=== PATIENT | male | born 1970 | race Hispanic/Latino ===

== ENCOUNTER 2021-03-31 08:14 | Emergency (ER) | payer SELFPAY ==
[2021-03-31 11:31] VITALS: BP 135/111
--- NOTE | 2021-03-31 11:34 | Emergency Department Report ---
ED Extremity Problem HPI - General Chief complaint: Extremity Problem,Nontraumatic Stated complaint: POSSIBLE BLOOD CLOT IN LEFT LEG Time Seen by Provider: 03/31/21 11:16 Source: patient Mode of arrival: Ambulatory Limitations: No Limitations - History of Present Illness Initial comments: Patient is a 50-year-old male who presents emergency room with complaints of an extremity issue to the left leg that began a week ago. He states initially it began as a rash to the left anterior bailon. He states this started a week ago and then 2 days later he began having swelling and pain to the leg. He denies ever having this in the past. He denies any fever, nausea, vomiting, diarrhea, numbness, weakness. He is ambulatory. he denies any fall or injury. He has a past medical history of hypertension but has not taken his medication in several years. He states he previously used to be on lisinopril. No allergies to medications. - Related Data Previous Rx's Medication Instructions Recorded Last Taken Type Naproxen [EC-Naprosyn] 500 mg PO BID PRN #20 tablet. 03/31/21 Unknown Rx hydroCHLOROthiazide [HCTZ] 25 mg PO QDAY #30 tablet 03/31/21 Unknown Rx traMADoL [Ultram 50 MG tab] 50 mg PO Q6HR PRN #12 tablet 03/31/21 Unknown Rx Allergies Allergy/AdvReac Type Severity Reaction Status Date / Time No Known Allergies Allergy Unverified 03/31/21 08:46 ED Review of Systems ROS: Stated complaint: POSSIBLE BLOOD CLOT IN LEFT LEG Other details as noted in HPI Comment: All other systems reviewed and negative ED Past Medical Hx - Past Medical History Hx Hypertension: Yes Hx Diabetes: Yes (Pre diabetes) - Surgical History Past Surgical History?: Yes Additional Surgical History: Mult ortho - Medications Home Medications: Home Medications Medication Instructions Recorded Confirmed Last Taken Type Naproxen [EC-Naprosyn] 500 mg PO BID PRN #20 tablet. 03/31/21 Unknown Rx hydroCHLOROthiazide [HCTZ] 25 mg PO QDAY #30 tablet 03/31/21 Unknown Rx traMADoL [Ultram 50 MG tab] 50 mg PO Q6HR PRN #12 tablet 03/31/21 Unknown Rx ED Physical Exam - General Limitations: No Limitations General appearance: alert, in no apparent distress - Head Head exam: Present: atraumatic, normocephalic - Eye Eye exam: Present: normal appearance - ENT ENT exam: Present: mucous membranes moist - Extremities Exam Extremities exam: Present: other (there appears to be a resolving rash present to the left anterior bailon, it is large erythematous macules, there is mild pitting edema to the LLE, no calf ttp, FROM, neurovascularly intact, strong pulses on doppler in ER ) - Neurological Exam Neurological exam: Present: alert, oriented X3 - Psychiatric Psychiatric exam: Present: normal affect, normal mood - Skin Skin exam: Present: warm, dry ED Course Vital Signs 03/31/21 03/31/21 03/31/21 08:48 15:26 15:31 Temperature 98.9 F Pulse Rate 84 88 Respiratory 24 16 16 Rate Blood Pressure 135/111 O2 Sat by Pulse 97 98 Oximetry ED Medical Decision Making - Lab Data Result diagrams: 03/31/21 12:58 03/31/21 12:58 Lab Results 03/31/21 03/31/21 03/31/21 Range/Units 12:58 12:58 12:58 WBC 5.8 (4.5-11.0) K/mm3 RBC 4.78 (3.65-5.03) M/mm3 Hgb 14.1 (11.8-15.2) gm/dl Hct 42.1 (35.5-45.6) % MCV 88 (84-94) fl MCH 30 (28-32) pg MCHC 34 (32-34) % RDW 15.2 (13.2-15.2) % Plt Count 195 (140-440) K/mm3 Lymph % (Auto) 26.5 (13.4-35.0) % Nicholas % (Auto) 9.5 H (0.0-7.3) % Eos % (Auto) 4.9 H (0.0-4.3) % Baso % (Auto) 1.1 (0.0-1.8) % Lymph # (Auto) 1.5 (1.2-5.4) K/mm3 Nicholas # (Auto) 0.6 (0.0-0.8) K/mm3 Eos # (Auto) 0.3 (0.0-0.4) K/mm3 Baso # (Auto) 0.1 (0.0-0.1) K/mm3 Seg Neutrophils % 58.0 (40.0-70.0) % Seg Neutrophils # 3.4 (1.8-7.7) K/mm3 ESR 2 (0-20) mm/Hr Sodium 139 (137-145) mmol/L Potassium 4.1 (3.6-5.0) mmol/L Chloride 99.9 (98-107) mmol/L Carbon Dioxide 29 (22-30) mmol/L Anion Gap 14 mmol/L BUN 12 (9-20) mg/dL Creatinine 0.8 (0.8-1.3) mg/dL Estimated GFR > 60 ml/min BUN/Creatinine Ratio 15 % Glucose 126 H (75-100) mg/dL Calcium 9.4 (8.4-10.2) mg/dL Total Bilirubin 0.60 (0.1-1.2) mg/dL AST 21 (5-40) units/L ALT 15 (7-56) units/L Alkaline Phosphatase 76 (35-129) units/L C-Reactive Protein 0.80 (0.00-1.30) mg/dL NT-Pro-B Natriuret Pep 12.77 (0-450) pg/mL Total Protein 7.0 (6.3-8.2) g/dL Albumin 4.6 (3.9-5) g/dL Albumin/Globulin Ratio 1.9 % Vital Signs 03/31/21 03/31/21 03/31/21 08:48 15:26 15:31 Temperature 98.9 F Pulse Rate 84 88 Respiratory 24 16 16 Rate Blood Pressure 135/111 O2 Sat by Pulse 97 98 Oximetry - Radiology Data Radiology results: report reviewed Ordering Physician: KEATON LYONS Date of Service: 03/31/21 Procedure(s): VL venous duplex LE LT Accession Number(s): [id number] cc: KEATON LYONS DUPLEX DOPPLER LOWER EXTREMITY VEINS, LEFT INDICATION: LLE pain and swelling. TECHNIQUE: Duplex doppler imaging was performed through the veins of the left lower extremity using venous compression and other maneuvers. COMPARISON: None available. FINDINGS: Common femoral vein: Negative. Superficial femoral vein: Negative. Popliteal vein: Negative. Calf veins: Negative. Additional findings: None. IMPRESSION: Negative for DVT. Signer Name: Uri Roldan MD Signed: 03/31/2021 12:42 PM Workstation Name: [id number] Transcribed By: ES Dictated By: Uri Roldan MD Electronically Authenticated By: Uri Roldan MD Signed Date/Time: 03/31/21 124 DD/ 124 TD/TT: - Medical Decision Making Patient is a 50-year-old male who presents emergency room with complaints of an extremity issue to the left leg that began a week ago. He states initially it began as a rash to the left anterior bailon. He states this started a week ago and then 2 days later he began having swelling and pain to the leg. He denies ever having this in the past. He denies any fever, nausea, vomiting, diarrhea, numbness, weakness. He is ambulatory. he denies any fall or injury. He has a past medical history of hypertension but has not taken his medication in several years. He states he previously used to be on lisinopril. No allergies to medications. Vitals with elevated blood pressure, otherwise stable, patient has been off of his blood pressure medication for several years, he is not having any symptoms related to his blood pressure at this time, the up-to-date medical literature does not recommend emergently lowering asymptomatic elevated blood pressure. on exam: there appears to be a resolving rash present to the left anterior bailon, it is large erythematous macules, there is mild pitting edema to the LLE, no calf ttp, FROM, neurovascularly intact, strong pulses on doppler in ER. Labs are stable. Patient's inflammatory markers are negative. Ultrasound of the left lower extremity: IMPRESSION: Negative for DVT. Discussed all results with patient and answered questions. He has no signs of cellulitis or infection. No signs of septic joint. he has no signs of acute complete arterial occlusion as he has palpable pulses and strong pulse on doppler. Patient given prescription for medications. Advised patient Please take medication as prescribed. Follow-up with your primary care doctor. Follow-up with a vascular specialist. Return to emergency room for any new or worsening symptoms. - Differential Diagnosis DVT, PVD, vasculitis, CHF, dermatitis, cellulitis, septic joint Critical care attestation.: If time is entered above; I have spent that time in minutes in the direct care of this critically ill patient, excluding procedure time. ED Disposition Clinical Impression: Left leg pain, Rash, Left leg swelling, Elevated blood pressure reading Disposition: DC-01 TO HOME OR SELFCARE Is pt being admited?: No Does the pt Need Aspirin: No Condition: Stable Instructions: Managing Your Hypertension Additional Instructions: Please take medication as prescribed. Follow-up with your primary care doctor. Follow-up with a vascular specialist. Return to emergency room for any new or worsening symptoms. Prescriptions: Naproxen [EC-Naprosyn] 500 mg PO BID PRN #20 tablet. PRN Reason: moderate pain hydroCHLOROthiazide [HCTZ] 25 mg PO QDAY #30 tablet traMADoL [Ultram 50 MG tab] 50 mg PO Q6HR PRN #12 tablet PRN Reason: Pain , Severe (7-10) Referrals: ARINA SOTELO MD [Primary Care Provider] - 2-3 Days [facility] [Provider Group] - 2-3 Days Time of Disposition: 15:05 Print Language: PERUVIAN
--- NOTE | 2021-03-31 12:55 | Vascular Lab Report ---
DUPLEX DOPPLER LOWER EXTREMITY VEINS, LEFT INDICATION: LLE pain and swelling. TECHNIQUE: Duplex doppler imaging was performed through the veins of the left lower extremity using venous compr ession and other maneuvers. COMPARISON: None available. FINDINGS: Common femoral vein: Negative. Superficial femoral vein: Negative. Popliteal vein: Negative. Calf veins: Negative. Additional findings: None. IMPRESSION: Negative for DVT. Signer Name: Uri Roldan MD Signed: 03/31/2021 12:42 PM Workstation Name: [id number]
[2021-03-31 13:32] LABS: Alanine Aminotransferase 15 units/L (7-56); Albumin 4.6 g/dL (3.9-5); BUN/Creatinine Ratio 15; Blood Urea Nitrogen 12 mg/dL (9-20); Calcium 9.4 mg/dL (8.4-10.2); Hemolysis Index 3
[2021-03-31 14:21] LABS: Basophils # (Auto) 0.1 K/mm3 (0.0-0.1); Basophils % (Auto) 1.1 % (0.0-1.8); Eosinophils # (Auto) 0.3 K/mm3 (0.0-0.4); Eosinophils % (Auto) 4.9 % (0.0-4.3); Hematocrit 42.1 % (35.5-45.6); Hemoglobin 14.1 gm/dl (11.8-15.2); Lymphocytes # (Auto) 1.5 K/mm3 (1.2-5.4); Lymphocytes % (Auto) 26.5 % (13.4-35.0); Mean Corpuscular HGB Conc 34 % (32-34); Mean Corpuscular Volume 88 fl (84-94); Monocytes # (Auto) 0.6 K/mm3 (0.0-0.8); Monocytes % (Auto) 9.5 % (0.0-7.3); Platelet Count 195 K/mm3 (140-440); Red Blood Count 4.78 M/mm3 (3.65-5.03); Red Cell Distribution Width 15.2 % (13.2-15.2)
[2021-03-31 14:32] LABS: Erythrocyte Sedimentation Rate 2 mm/Hr (0-20)
[2021-03-31] MEDS ORDERED: HYDROcodone/ACETAMINOPHEN 5-325 MG TAB PO ONE (15:07)
== END 2021-03-31 15:31 | disposition home or self-care (01) ==
LOC: ED 08:14
DX: I10 Essential (primary) hypertension (principal); M79.662 Pain in left lower leg; M79.89 Other specified soft tissue disorders; E11.9 Type 2 diabetes mellitus without complications
CPT/HCPCS: 36415; 80053; 83880; 85025; 85652; 86140; 99284